=== PATIENT | male | born 1995 | race Caucasian/White ===

== ENCOUNTER 2023-04-26 21:03 | Outpatient (CLI) | payer OTHER, SELFPAY | END 2023-04-26 21:04 | disposition home or self-care (01) | LOC: AMB 05-04 19:10 | PROVIDERS: Visit Provider Family Medicine | DX: R45.851 Suicidal ideations (principal) | CPT/HCPCS: A0425; A0429 ==

== ENCOUNTER 2023-04-26 21:49 | Emergency (ER) | payer OTHER, SELFPAY ==
[2023-04-26 22:15] VITALS: BP 167/116; PULSE 98; RESP 18; TEMP 36.6; O2SAT 99
--- NOTE | 2023-04-26 22:37 | ED_ITS ---
HPI - Psych General Chief Complaint: Psychiatric Problem/Disorder Stated Complaint: Psych Time Seen by Provider: 04/26/23 22:20 Source: patient, family () and EMS Mode of arrival: EMS Limitations: no limitations History of Present Illness HPI Narrative: Patient is a 27-year-old male presenting emergency department for mental health evaluation. EMS was called to his house because his , who recently separa hattie from him, states he was making suicidal comments to family over text. When he he arrived at his place he had a suicide note next to a knife. They then got an argument and she states he was acting very strange and seemed to have a sudden calmness to him asking her to leave so he could go to sleep. She was concerned so she called EMS. They arrived had brought him to the emergency department. He states they brought him here because he goes upset about losing his job and through a glass against the wall that shattered. He denies suicide or homicidal thoughts. Does admit to drinking some alcohol earlier in the day and smoking marijuana. Per his also notes he is scheduled for court hearing next week for multiple episodes of indecent exposure. This has continued despite multiple family members trying to get him to stop. She also notes he is starting to abuse drugs again. Related Data Home Medications Medication Instructions Recorded Confirmed fluoxetine 40 mg capsule 40 mg PO DAILY 04/26/23 04/26/23 Allergies Allergy/AdvReac Type Severity Reaction Status Date / Time Sulfa (Sulfonamide Allergy Verified 04/26/23 22:19 Antibiotics) Review of Systems Status of ROS: Reports: 10 or more systems reviewed and unremarkable except as noted in History and below [facility] Medical History (Updated 04/27/23 @ 13:58 by Jewel Tee DO) No significant past medical history Surgical History (Updated 04/26/23 @ 22:46 by Keith Anaya RN) No significant past surgical history Social History Smoking Status: Never smoker Second hand tobacco smoke exposure: No How often do you have a drink containing alcohol: never How often do you have six or more drinks on one occasion: Never AUDIT-C Alcohol total score: 0 Non-prescribed substance use: marijuana (any form) Exam Narrative: Exam Narrative: Const: Well-nourished, Well-developed, in mild distress Eyes: PERRL, no conjunctival injection, and symmetrical lids HENT: Atraumatic external nose and ears. Moist mucous membranes. Neck: Symmetric, trachea midline, No thyromegaly. CVS: RRR, No murmurs or gallops. Peripheral pulses 2+ and equal in all extremities RESP: Unlabored respiratory effort. Clear to auscultation bilaterally. GI: Nontender/Nondistended, No rebound or guarding. MSK:Extremities w/o deformity, Normal Active ROM Skin: Warm, Dry. No rashes or lesions. Neuro: Normal Muscle tone, No focal neurological deficits. Psych: Awake, Alert, & Oriented x3. Appropriate mood and affect. Const: Vital Signs, click to edit/add: Vital Signs - 24 hr 04/26/23 22:15 04/27/23 00:33 04/27/23 05:47 Temperature 97.8 F 98.2 F 98.0 F Pulse Rate [Pulse Oximeter] 98 89 85 Respiratory Rate 18 18 18 Blood Pressure [Ri t Upper Arm] 167/116 H 132/74 125/70 Pulse Oximetry 99 99 99 Oxygen Delivery Me thod Room Air Room Air Room Air Course Vital Signs Vital signs: Initial Vital Signs Temperature 97.8 F 04/26/23 22:15 Temperature Source Temporal Artery Scan 04/26/23 22:15 Pulse Rate 98 04/26/23 22:15 Respiratory Rate 18 04/26/23 22:15 Blood Pressure 167/116 H 04/26/23 22:15 Blood Pressure Mean 133 H 04/26/23 22:15 Blood Pressure Position Sitting 04/26/23 22:15 Pulse Oximetry 99 04/26/23 22:15 Oxygen Delivery Method Room Air 04/26/23 22:15 Vital Signs Temperature 97.8 F 04/26/23 22:15 Pulse Rate 98 04/26/23 22:15 Respiratory Rate 18 04/26/23 22:15 Blood Pressure 167/116 H 04/26/23 22:15 Pulse Oximetry 99 04/26/23 22:15 Oxygen Delivery Method Room Air 04/26/23 22:15 Temperature 98.0 F 04/27/23 05:47 Pulse Rate 85 04/27/23 05:47 Respiratory Rate 18 04/27/23 05:47 Blood Pressure 125/70 04/27/23 05:47 Pulse Oximetry 99 04/27/23 05:47 Oxygen Delivery Method Room Air 04/27/23 05:47 Medications Administered Medications: Discontinued Medications Generic Name Dose Route Start Last Admin Trade Name Maurisio SALCEDO Reason Stop Dose Admin Melatonin 6 mg 04/27/23 00:05 04/27/23 00:32 Melatonin 3 Mg Tablet PO 04/27/23 00:06 6 mg HS ONE Administration MDM - Psych MDM Narrative Medical decision making narrative: Patient is a 27-year-old male presenting to the emergency department for mental health evaluation. His story seems very different from his white story and difficult to say he was told to but EMS report does also state there was a suicide note and a knife so I am more likely believe the at this time. The patient will be evaluated by DEC. He appears clinically sober. CBC, BMP, urine drug screen, EtOH all ordered. EtOH is 0.07%. CBC and BMP showed no concerning findings. UDS shows marijuana in his system. After DEC spoke to the patient and the is bedside the patient need inpatient treatment. At this point the patient states he will voluntarily stay. He says he does not want to be difficult. Patient signed out to the oncoming physician I picked the patient back up in the morning. At this time patient is doing well he states he is feeling much better. He blames his actions yesterday on the drinking. We have looked around the state for possible placement but known would take him due to his in decent exposure charges. At this point there is no where to admit the patient. The patient was seen by DEC again. At this time we will discharge the patient. His is aware of the plan. He does have family and his mentor coming in from out of town this afternoon to see him and be with him. Safety plan was made and he will be discharged home. Lab Data Labs: Lab Results 04/26/23 04/26/23 04/26/23 Range/Units 00:02 22:27 22:35 WBC 9.21 (4.50-11.00) K/uL RBC 5.06 (4.30-5.90) m/uL Hgb 16.2 (13.5-17.5) gm/dL Hct 46.7 (37.0-53.0) % MCV 92 (80-100) fL MCH 32 (26-34) pg MCHC 35 (32-36) gm/dL RDW Coeff of Radames 11.1 L (11.5-15.5) % Plt Count 354 (140-440) K/uL Neut % (Auto) 51.5 (42.0-72.0) % Lymph % (Auto) 38.9 (20-44) % Jerauld % (Auto) 7.7 (0.0-11.0) % Eos % (Auto) 1.6 (0.0-7.0) % Baso % (Auto) 0.2 (0.0-3.0) % Neut # (Auto) 4.74 (1.7-7.0) K/uL Lymph # (Auto) 3.58 H (0.90-2.90) K/uL Jerauld # (Auto) 0.70 (0.00-0.90) K/UL Eos # (Auto) 0.15 (0.00-0.50) K/uL Baso # (Auto) 0.02 (0.00-0.30) K/uL Abs Immat Gran (auto) 0.01 (0.00-0.30) K/uL Imm/Tot Granulo (auto) 0.1 % Sodium (135-149) mmol/L Potassium (3.6-5.1) mmol/L Chloride (96-114) mmol/L Carbon Dioxide (20-32) mmol/L Anion Gap (7-15) mEq/L BUN (5-24) mg/dL Creatinine (0.5-1.5) mg/dL Estimated GFR ml/min Glucose (60-115) mg/dL Calcium (8.4-10.6) mg/dL Urine Opiates Screen Negative (Negative) Ur Oxycodone Screen Negative (Negative) Urine Methadone Screen Negative (Negative) Ur Propoxyphene Screen Negative (Negative) Ur Barbiturates Screen Negative (Negative) U Tricyclic Antidepress Negative (Negative) Ur Phencyclidine Scrn Negative (Negative) Ur Amphetamines Screen Negative (Negative) U Methamphetamines Scrn Negative (Negative) U Benzodiazepines Scrn Negative (Negative) Urine Cocaine Screen Negative (Negative) U Marijuana (THC) Screen POSITIVE A (Negative) Ur Drug Screen Comment See Note Ethyl Alcohol (0.01-0.03) % SARS-CoV-2 (PCR) Negative SARS-CoV-2 (Negative) 04/26/23 Range/Units 22:42 WBC (4.50-11.00) K/uL RBC (4.30-5.90) m/uL Hgb (13.5-17.5) gm/dL Hct (37.0-53.0) % MCV (80-100) fL MCH (26-34) pg MCHC (32-36) gm/dL RDW Coeff of Radames (11.5-15.5) % Plt Count (140-440) K/uL Neut % (Auto) (42.0-72.0) % Lymph % (Auto) (20-44) % J[place] % (Auto) (0.0-11.0) % Eos % (Auto) (0.0-7.0) % Baso % (Auto) (0.0-3.0) % Neut # (Auto) (1.7-7.0) K/uL Lymph # (Auto) (0.90-2.90) K/uL J[place] # (Auto) (0.00-0.90) K/UL Eos # (Auto) (0.00-0.50) K/uL Baso # (Auto) (0.00-0.30) K/uL Abs Immat Gran (auto) (0.00-0.30) K/uL Imm/Tot Granulo (auto) % Sodium 141 (135-149) mmol/L Potassium 3.0 L (3.6-5.1) mmol/L Chloride 104 (96-114) mmol/L Carbon Dioxide 22 (20-32) mmol/L Anion Gap 15 (7-15) mEq/L BUN 9 (5-24) mg/dL Creatinine 0.8 (0.5-1.5) mg/dL Estimated GFR 123 ml/min Glucose 98 (60-115) mg/dL Calcium 9.6 (8.4-10.6) mg/dL Urine Opiates Screen (Negative) Ur Oxycodone Screen (Negative) Urine Methadone Screen (Negative) Ur Propoxyphene Screen (Negative) Ur Barbiturates Screen (Negative) U Tricyclic Antidepress (Negative) Ur Phencyclidine Scrn (Negative) Ur Amphetamines Screen (Negative) U Methamphetamines Scrn (Negative) U Benzodiazepines Scrn (Negative) Urine Cocaine Screen (Negative) U Marijuana (THC) Screen (Negative) Ur Drug Screen Comment Ethyl Alcohol 0.07 H (0.01-0.03) % SARS-CoV-2 (PCR) (Negative) Discharge Plan Discharge Clinical Impression: Depression Patient Disposition: Home, Self-Care Condition: Improved Instructions: Depression (ED) Additional Instructions: Make sure you follow the safety plan that has been implemented. Return to emergency department for new worsening symptoms. Prescriptions: No Action fluoxetine 40 mg capsule 40 mg PO DAILY Follow Up/Referrals: Provider,Not a Local [Primary Care Provider] - Stand Alone Forms: [facility] Info Instructions
--- NOTE | 2023-04-26 22:46 | PC.NURSE ---
pt online with DEC assessment
[2023-04-26 23:05] LABS: Amphetamine Screen Urine Negative (Negative); Barbiturate Screen Urine Negative (Negative); Benzodiazepines Screen Urine Negative (Negative); Cannabinoid Screen Urine POSITIVE (Negative); Cocaine Screen Urine Negative (Negative); Methadone Screen Urine Negative (Negative); Methamphetamines Screen Urine Negative (Negative); Opiate Screen Urine Negative (Negative); Oxycodone Screen Urine Negative (Negative); Phencyclidine Screen Urine Negative (Negative); Tricyclic Antidepressant Urine Negative (Negative)
[2023-04-26 23:17] LABS: Chloride* 104 mmol/L (96-114); Sodium* 141 mmol/L (135-149)
[2023-04-26 23:19] LABS: Anion Gap 15 mEq/L (7-15); Carbon Dioxide* 22 mmol/L (20-32); Creatinine* 0.8 mg/dL (0.5-1.5); Estimated Glomerular Filt Rate 123 ml/min
[2023-04-26 23:20] LABS: Blood Urea Nitrogen* 9 mg/dL (5-24); Calcium* 9.6 mg/dL (8.4-10.6); Ethanol* 0.07 % (0.01-0.03); Glucose* 98 mg/dL (60-115)
[2023-04-26 23:23] LABS: Basophils Absolute Auto 0.02 K/uL (0.00-0.30); Basophils Percent Auto 0.2 % (0.0-3.0); Eosinophils Absolute Auto 0.15 K/uL (0.00-0.50); Eosinophils Percent Auto 1.6 % (0.0-7.0); Hematocrit 46.7 % (37.0-53.0); Hemoglobin* 16.2 gm/dL (13.5-17.5); Immature Granulocytes Abs Auto 0.01 K/uL (0.00-0.30); Immature Granulocytes Pct Auto 0.1 %; Lymphocytes Absolute Auto 3.58 K/uL (0.90-2.90); Lymphocytes Percent Auto 38.9 % (20-44); Mean Corpuscular HGB Conc 35 gm/dL (32-36); Mean Corpuscular Hemoglobin 32 pg (26-34); Mean Corpuscular Volume 92 fL (80-100); Monocytes Percent Auto 7.7 % (0.0-11.0); Neutrophils Absolute Auto 4.74 K/uL (1.7-7.0); Neutrophils Percent Auto 51.5 % (42.0-72.0); Platelet Count* 354 K/uL (140-440); RDW Coefficient of Variation % 11.1 % (11.5-15.5); Red Blood Count 5.06 m/uL (4.30-5.90); White Blood Count* 9.21 K/uL (4.50-11.00)
[2023-04-26 23:24] LABS: Slide Review Reflex No
[2023-04-27] MEDS: MELATONIN 3 MG TABLET 6 MG PO (00:32)
[2023-04-27 00:33] VITALS: BP 132/74; PULSE 89; RESP 18; TEMP 36.8; O2SAT 99
[2023-04-27 00:40] LABS: SARS PCR* Negative SARS-CoV-2 (Negative)
[2023-04-27 05:47] VITALS: BP 125/70; PULSE 85; RESP 18; TEMP 36.7; O2SAT 99
--- NOTE | 2023-04-27 08:39 | ED.NURSE ---
awake, sitting up in bed eating breakfast. calm. states he had a bad night feels better and clearer this AM
--- NOTE | 2023-04-27 09:07 | ED.NURSE ---
social service here to reivew chart
--- NOTE | 2023-04-27 10:40 | ED.NURSE ---
pt waiting for DEC reassessment
--- NOTE | 2023-04-27 11:16 | ED.NURSE ---
sitting in bed watching tv. waiting for DEC assessment
--- NOTE | 2023-04-27 12:14 | ED.NURSE ---
DEC in progress. lunch ordered
== END 2023-04-27 14:18 | disposition home or self-care (01) ==
PROVIDERS: Emergency Provider Student in an Organized Health Care Education/Training Program
DX: F32.A Depression, unspecified (principal)
CPT/HCPCS: 36415; 80048; 80306; 82077; 85025; 87635; 99283; 99284; A9270